=== PATIENT | male | born 1955 | race Caucasian/White ===

== ENCOUNTER 2016-12-03 11:54 | Day surgery (SDC) | payer OTHER ==
[2016-12-03] MEDS ORDERED: IV START KIT ONE (12:13)
[2016-12-03] MEDS ORDERED: LACTATED RINGERS 1,000 ML ONE (12:13)
[2016-12-03] MEDS ORDERED: PROPOFOL 40 ML IV ONE (14:10)
[2016-12-03] MEDS ORDERED: KETAMINE HCL UD SYRINGE 100 MG/2 ML IV ONE (14:11)
--- NOTE | 2016-12-06 09:19 | SURGPATH ---
[facility] [address] [place] [id number] Patient Name: LEAH KC MR#: [id number] : 1955 Gender: M Specimen #: [id number] Collected: 12/03/2016 Received: 12/05/2016 Reported: 12/06/2016 Submitting Phys: JESSE VERDUGO Copy To Phys: [facility] Clinical History / Pre-Operative Diagnosis: SURVEILLANCE; HISTORY OF COLON POLYPS Specimen Source / Surgical Procedure Performed: SPLENIC FLEXURE POLYP Interpretation: SPLENIC FLEXURE POLYP, BIOPSY: - NORMAL COLONIC MUCOSA Electronically Signed Out Juan Gutiérrez M.D. Gross Description: The specimen is received in a formalin filled container labeled with the patient's name and "splenic flexure polyp". A single bay biopsy is 0.3 cm. Totally embedded in one cassette. Rob Murray PRowdy Microscopic Description: Microscopic performed. 1: 82524 K63.5
== END 2016-12-03 15:45 | disposition home or self-care (01) ==
LOC: SDC 11:54
PROVIDERS: ATTEND Surgery
PROC: 0DBL8ZX Excision of Transverse Colon, Via Natural or Artificial Opening Endoscopic, Diagnostic (ICD-10-PCS; principal; 2016-12-03)
DX: Z12.11 Encounter for screening for malignant neoplasm of colon (principal); K63.5 Polyp of colon; Z86.010 Personal history of colon polyps; I10 Essential (primary) hypertension; E11.9 Type 2 diabetes mellitus without complications; E78.2 Mixed hyperlipidemia; F17.210 Nicotine dependence, cigarettes, uncomplicated; Z79.82 Long term (current) use of aspirin; Z79.84 Long term (current) use of oral hypoglycemic drugs; Z88.6 Allergy status to analgesic agent; Z88.8 Allergy status to other drugs, medicaments and biological substances; Z88.5 Allergy status to narcotic agent; Z91.040 Latex allergy status; Z79.4 Long term (current) use of insulin
CPT/HCPCS: 45380; J7120